=== PATIENT | female | born 1970 | race Hispanic/Latino ===

== ENCOUNTER → 2021-05-11 | Emergency (ER) | payer BC ==
[~2021-05-11] VITALS: Ht 162.6 cm; Wt 90.7 kg
[~2021-05-11] MED LIST: MECLIZINE HCL 12.5 MG TAB PO ONE; MECLIZINE HCL12.5 MG PO; ONDANSETRON HCL 4 MG ORAL DISINTEGRATING TAB PO ONE; Z ENJUVIA PO; Z RISPERDAL PO; Z.0.LISINOPRIL5 MG PO; Z.0.ZOLOFT50 MG PO
== END ==
LOC: ER 11:20
DX: H81.399 Other peripheral vertigo, unspecified ear (principal); I10 Essential (primary) hypertension; E78.5 Hyperlipidemia, unspecified; M06.9 Rheumatoid arthritis, unspecified
CPT/HCPCS: 99283; J8597; Q0162

== ENCOUNTER 2025-05-31 19:47 | Emergency (ER) | payer BC, OTHER ==
[~2025-05-31] VITALS: Ht 162.6 cm; Wt 88.0 kg
[~2025-05-31 19:47] MED LIST changes: -MECLIZINE HCL 12.5 MG TAB PO ONE; -ONDANSETRON HCL 4 MG ORAL DISINTEGRATING TAB PO ONE
[2025-05-31 20:30] VITALS: PULSE 71; RESP 16; TEMP 98.8
[2025-05-31 21:03] LABS: BASOPHILS % 0.2 % (0.0-1.0); EOSINOPHILS % 0.3 % (0.0-6.0); LYMPHOCYTES % 82.0 % (18.0-39.1); MONOCYTES % 3.8 % (4.4-11.3); NEUTROPHILS % 13.5 % (38.7-80.0); RED CELL DISTRIBUTION WIDTH 13.2 % (11.7-14.4)
[2025-05-31 21:05] LABS: LEUKOCYTE ESTERASE ,URINE NEGATIVE (NEGATIVE); PROTEIN,URINE DIPSTICK NEGATIVE (NEGATIVE); URINE UROBILINOGEN 0.2 mg/dL (0.2 - 1)
[2025-05-31 21:25] LABS: EST GLOMERULAR FILTRATION RATE 78.0 ML/MIN (>=60)
[2025-05-31] MEDS ORDERED: IOPAMIDOL 370 MG/ML 100 ML INFUS..BTL INJ ONE (21:37)
[2025-05-31] MEDS ORDERED: ALBENDAZOLE200 MG PO (22:54)
[2025-05-31 22:58] VITALS: BP 138/79; PULSE 63; RESP 16; TEMP 97.7; O2SAT 100
[2025-06-01 02:33] LABS: EOSINOPHILS % (MANUAL) 1 % (0-7); LYMPHOCYTES % (MANUAL) 72 % (19-48); MONOCYTES % (MANUAL) 4 % (3.4-9.0); NEUTROPHILS % (MANUAL) 13 % (40-74); REACTIVE LYMPHOCYTES 10
[2025-06-01 02:38] LABS: PLATELET ESTIMATE ADEQUATE; PLATELET MORPHOLOGY COMMENT NORMAL; RBC MORPHOLOGY COMMENT NORMAL
== END 2025-05-31 22:55 | disposition home or self-care (01) ==
LOC: ER 19:51
DX: R10.32 Left lower quadrant pain (principal); K76.0 Fatty (change of) liver, not elsewhere classified; K42.9 Umbilical hernia without obstruction or gangrene; N28.1 Cyst of kidney, acquired
CPT/HCPCS: 36415; 74177; 80053; 81001; 83690; 85025; 99284; Q9967